=== PATIENT | female | born 1950 | race African-American/Black ===

== ENCOUNTER 2016-05-03 07:48 | Day surgery (SDC) | payer OTHER ==
[2016-05-02 12:01] VITALS: BMI 28.2
[2016-05-03] MEDS ORDERED: PROMETHAZINE HCL 25 MG/1 ML VIAL IVPUSH PRN (08:59)
[2016-05-03] MEDS ORDERED: ONDANSETRON 4 MG/2 ML VIAL IVPUSH PRN (08:59)
[2016-05-03] MEDS ORDERED: oxyCODONE HCL 5 MG TABLET PO PRN (08:59)
[2016-05-03] MEDS ORDERED: LACTATED RINGERS SOLUTION 1,000 ML IV SCH (09:00)
[2016-05-03] MEDS ORDERED: BUPIVACAINE HCL/PF 0.5% (5MG/ML) 10 ML VIAL ONE (09:21)
[2016-05-03] MEDS ORDERED: MIDAZOLAM HCL 2 MG/2 ML SINGLE DOSE VIAL ONE (09:25)
[2016-05-03] MEDS ORDERED: PROPOFOL 20 ML ONE (09:26)
[2016-05-03] MEDS ORDERED: LIDOCAINE HCL/PF 2% SDV 5ML VIAL ONE (09:32)
[2016-05-03] MEDS ORDERED: ceFAZolin SODIUM 1 GM VIAL ONE (09:32)
[2016-05-03] MEDS ORDERED: KETOROLAC TROMETHAMINE 30 MG/1 ML VIAL ONE (09:32)
[2016-05-03] MEDS ORDERED: DEXAMETHASONE SOD PHOSPHATE 4 MG/1 ML VIAL ONE (09:32)
--- NOTE | 2016-05-03 09:37 | HP ---
[facility] - Chief Complaint Chief Complaint: right knee pain History of Present Illness: right knee pain History Source: Patient Limitations to Obtaining History: No Limitations - Past Medical History Allergies/Adverse Reactions: Allergies Allergy/AdvReac Type Severity Reaction Status Date / Time shellfish derived Allergy Mild Hives Verified 05/03/16 08:57 - Current Medications Current Medications: Home Medications Medication Instructions Recorded Calcium Citrate/Vitamin D3 1 each PO DAILY 05/02/16 [Calcium Citrate - Vit D3 Tab] Hydrochlorothiazide [Hctz -] 12.5 mg PO HS 05/02/16 Prednisolone 1% Ophthalmic [Pred 5 ml OP ASDIR 05/02/16 Forte 1% -] Ubidecarenone [Co Q-10] 100 mg PO DAILY 05/02/16 Valacyclovir HCl [Valtrex -] 500 mg PO HS 05/02/16 Satellite Physical Exam - Physical Examination Vital Signs: Vital Signs Period Temp Pulse Resp BP Sys/Faith Pulse Ox Last 24 Hr 98.1 F-98.1 F 74-74 20-20 149-149/88-88 96 General Appearance: Well Nourished ENT: Clear Lung: Clear to auscultation Heart: Regular rate & rhythm Breasts: Soft Abdomen: Soft Extremities: No edema [facility]ellite Impression/Plan - Impression/Plan Impression: right knee pain, possible meniscus tear, loose bodies Operative Procedure: right knee arthroscopy Date to be Performed: 05/03/16
[2016-05-03] MEDS ORDERED: ceFAZolin SODIUM 1 GM VIAL IVPB ONE (09:43)
--- NOTE | 2016-05-03 10:23 | OP ---
Operative Note - Note: Operative Date: 05/03/16 Pre-Operative Diagnosis: right knee pain Operation: right knee arthroscopy, partial lateral meniscectomy, debridement chondroplasty Post-Operative Diagnosis: Same as Pre-op Surgeon: David Arceo Anesthesiologist/SYSTEM VALIDATION ENGINEER: Lucho Mehta Anesthesia: General, Local Specimens Removed: shavings Estimated Blood Loss (mls): 0 Blood Volume Replaced (mls): 0 Fluid Volume Replaced (mls): 500 Operative Report Dictated: Yes
[2016-05-03 15:09] VITALS: TEMP 97.9
[2016-05-03 17:10] VITALS: BP 110/70; PULSE 78
--- NOTE | 2016-05-04 14:00 | PATH ---
Surgical Pathology Report Patient Name: HOMER KELLY [facility]. Rec. #: [id number] /Age/Gender: 1950 (Age: 65) / F Account: [id number] Location: [facility] SURGICAL Taken: 05/03/2016 Received: 05/03/2016 Reported: 05/04/2016 Physicians: David Arceo M.D. Specimen(s) Received SHAVINGS RIGHT KNEE Clinical History Right knee internal derangement Final Diagnosis KNEE, RIGHT, ARTHROSCOPIC SHAVING: FIBROCARTILAGE WITH MYXOID DEGENERATIVE CHANGES, ALONG WITH PORTIONS OF SYNOVIUM AND HYALINE CARTILAGE. Electronically Signed Gabriele Peter M.D. Gross Description Received in formalin, labeled "right knee shavings," is a 7.0 x 6.0 x 0.8 cm. aggregate of cowart-yellow soft tissue fragments. A technical service representative portion is submitted in one cassette. /05/03/201605/03/2016
--- NOTE | 2016-06-13 07:54 | OP ---
DATE OF OPERATION: 05/03/2016 DATE OF DICTATION: 06/12/2016 PREOPERATIVE DIAGNOSIS: Right knee pain, medial meniscus tear. POSTOPERATIVE DIAGNOSIS: Right knee pain, medial meniscus tear, plus osteoarthritis. PROCEDURE: Right knee arthroscopy, partial medial meniscectomy and debridement with chondroplasty. SURGEON: David Arceo MD ASSISTANTS: None. AIRCRAFT FUELER: Anmol Gallegos Jr., CRNA ANESTHESIA: LMA anesthesia with local injection of 20 mL 0.5% Marcaine. DRAINS: None. COMPLICATIONS: None. SPECIMENS: Arthroscopic shavings. FLUID REPLACEMENT: 500 mL. BLOOD LOSS: None. BLOOD GIVEN: None. INDICATIONS: This patient is a 65-year-old female with a preoperative diagnosis of recurrent medial sided right knee pain. After understanding the potential risks, complications, alternatives, and benefits of surgery versus nonsurgical treatment, the patient elected to undergo this procedure. Preoperative MRI confirmed mild osteoarthritis in the medial compartment and the patellofemoral compartment and a medial meniscus tear. The patient understands she may not get complete relief of her symptoms partially because of the osteoarthritis. DESCRIPTION OF PROCEDURE: Patient was brought to the operating room, peripheral IV placed, IV sedation given. One gram of IV Ancef was given. LMA anesthesia was induced. Webril was placed on the right thigh. The tourniquet applied. The Styrofoam ring was applied. The right lower extremity was placed into a C-clamp leg-reilly. The right lower extremity was prepped and draped in the usual sterile fashion, elevated, exsanguinated with an Esmarch bandage, and tourniquet inflated to 275 mmHg. A superior medial outflow portal was established, lateral portal was established. Arthroscope was introduced into the joint using a spinal needle and No. 15 scalpel blade, and medial portal was established under direct visualization. A diagnostic arthroscopy was performed. Patient was seen to have, in the medial compartment, a tear of the posterior horn of the medial meniscus. This was debrided with a straight biter forceps and a curved shaver. Photographs taken before and after the partial medial meniscectomy. 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 Next, our attention was turned to the intercondylar notch. This looked good. The ACL looked good. It was probed and had the appropriate tension. Next, our attention was turned to the lateral compartment. This looked good, the lateral meniscus looked intact, and there was no osteoarthritis. Next, our attention turned to the patellofemoral joint. The patient did have osteoarthritis and chondromalacia of the undersurface of the patella as well as the femoral trochlea. Gentle debridement chondroplasty was performed here, as well. All debris was removed. Excess saline removed. The arthroscopic equipment removed from the knee. The area was copiously irrigated and washed out. The arthroscopy portals were closed with 3-0 nylon sutures. The area was then washed and dried, covered with Xeroform gauze, 4x4s, Webril, and an Balaji bandage. Tourniquet was taken down after a total tourniquet time of 18 minutes. There were no complications during the case. The patient tolerated the procedure well, was brought to the ambulatory recovery room in stable condition. Ale [id number]
== END 2016-05-03 15:45 | disposition home or self-care (01) ==
LOC: JASU-SURG 07:48
PROVIDERS: ATTEND Orthopaedic Surgery
PROC: 0SBC4ZZ Excision of Right Knee Joint, Percutaneous Endoscopic Approach (ICD-10-PCS; principal; 2016-05-03 09:30)
DX: M23.203 Derangement of unspecified medial meniscus due to old tear or injury, right knee (principal); M17.11 Unilateral primary osteoarthritis, right knee
CPT/HCPCS: 88304-TC; 94760; 97164-GP